=== PATIENT | male | born 1950 | race Caucasian/White ===

== ENCOUNTER 2022-08-07 06:09 | Day surgery (SDC) | payer OTHER, BC ==
[2022-08-02 11:58] VITALS: BMI 33.6
[2022-08-07] MEDS ORDERED: EPINEPHrine/PF 1 MG/1 ML (1:1,000) AMPULE ONE (07:11)
[2022-08-07] MEDS ORDERED: LIDOCAINE HCL 1%, 10 MG/ML (20ML VIAL) ONE (07:11)
[2022-08-07] MEDS ORDERED: ERYTHROMYCIN 0.5% OPHTHALMIC OINTMENT 3.5 GM TUBE ONE (07:11)
[2022-08-07] MEDS ORDERED: TETRACAINE 0.5% OPHTH SOLN 2 ML BOTTLE ONE (07:11)
[2022-08-07] MEDS ORDERED: POVIDONE-IODINE 5% OPHTHALMIC PREP 30 ML SOLUTION ONE (07:12)
[2022-08-07] MEDS ORDERED: ceFAZolin SODIUM 1 GM VIAL ONE ×2 (07:12→07:29)
[2022-08-07] MEDS ORDERED: BUPIVACAINE HCL/PF 0.5% (5MG/ML) 10 ML VIAL ONE (07:12)
[2022-08-07] MEDS ORDERED: MIDAZOLAM HCL 2 MG/2 ML SINGLE DOSE VIAL ONE (07:25)
[2022-08-07] MEDS ORDERED: PROPOFOL 20 ML ONE ×3 (07:28→09:16)
[2022-08-07] MEDS ORDERED: ONDANSETRON 4 MG/2 ML VIAL ONE (08:18)
[2022-08-07] MEDS ORDERED: DEXAMETHASONE SOD PHOSPHATE 4 MG/1 ML VIAL ONE (08:18)
[2022-08-07] MEDS ORDERED: ONDANSETRON 4 MG/2 ML VIAL IVPUSH PRN (09:53)
[2022-08-07] MEDS ORDERED: oxyCODONE HCL 5 MG TABLET PO PRN (09:53)
[2022-08-07] MEDS ORDERED: LACTATED RINGERS SOLUTION 1,000 ML IV SCH (10:00)
[2022-08-07 10:36] VITALS: RESP 16
[2022-08-07 10:47] VITALS: PULSE 62
[2022-08-07 11:39] VITALS: BP 131/70; TEMP 97.8
== END 2022-08-07 12:00 | disposition home or self-care (01) ==
LOC: FASU 06:09
PROVIDERS: ATTEND Ophthalmology
PROC: 0KX10ZZ Transfer Facial Muscle, Open Approach (ICD-10-PCS; 2022-08-07)
PROC: 0JQ10ZZ Repair Face Subcutaneous Tissue and Fascia, Open Approach (ICD-10-PCS; principal; 2022-08-07 08:00)
DX: H02.89 Other specified disorders of eyelid (principal); C44.1022 Unspecified malignant neoplasm of skin of right lower eyelid, including canthus
CPT/HCPCS: 94760

== ENCOUNTER 2022-10-09 06:16 | Day surgery (SDC) | payer OTHER, BC ==
[2022-10-04 16:29] VITALS: BMI 33.6
[2022-10-09] MEDS ORDERED: ceFAZolin SODIUM 1 GM VIAL ONE ×2 (07:19→07:27)
[2022-10-09] MEDS ORDERED: ERYTHROMYCIN 0.5% OPHTHALMIC OINTMENT 3.5 GM TUBE ONE (07:20)
[2022-10-09] MEDS ORDERED: POVIDONE-IODINE 5% OPHTHALMIC PREP 30 ML SOLUTION ONE (07:20)
[2022-10-09] MEDS ORDERED: TETRACAINE 0.5% OPHTH SOLN 2 ML BOTTLE ONE (07:20)
[2022-10-09] MEDS ORDERED: LIDOCAINE HCL 1%, 10 MG/ML (20ML VIAL) ONE (07:20)
[2022-10-09] MEDS ORDERED: EPINEPHrine/PF 1 MG/1 ML (1:1,000) AMPULE ONE (07:20)
[2022-10-09] MEDS ORDERED: BUPIVACAINE HCL 50 ML ONE (07:21)
[2022-10-09] MEDS ORDERED: LIDOCAINE HCL/PF 2% SDV 5ML VIAL ONE (07:27)
[2022-10-09] MEDS ORDERED: SUCCINYLCHOLINE CHLORIDE 200 MG/10 ML SYRINGE ONE (07:28)
[2022-10-09] MEDS ORDERED: MIDAZOLAM HCL 2 MG/2 ML SINGLE DOSE VIAL ONE (07:28)
[2022-10-09] MEDS ORDERED: PROPOFOL 40 ML ONE (07:28)
[2022-10-09] MEDS ORDERED: LIDOCAINE HCL 2% JELLY 11 ML TP ONE (07:49)
[2022-10-09] MEDS ORDERED: ONDANSETRON 4 MG/2 ML VIAL ONE (07:58)
[2022-10-09] MEDS ORDERED: PROPOFOL 20 ML ONE ×2 (08:40→09:10)
[2022-10-09] MEDS ORDERED: ONDANSETRON 4 MG/2 ML VIAL IVPUSH PRN (09:17)
[2022-10-09] MEDS ORDERED: oxyCODONE HCL 5 MG TABLET PO PRN ×2 (09:17)
[2022-10-09 10:01] VITALS: TEMP 98.1
[2022-10-09 11:06] VITALS: RESP 18
[2022-10-09 12:21] VITALS: BP 129/61; PULSE 69
== END 2022-10-09 12:10 | disposition home or self-care (01) ==
LOC: FASU 06:16
PROVIDERS: ATTEND Ophthalmology
PROC: 0KX10ZZ Transfer Facial Muscle, Open Approach (ICD-10-PCS; 2022-10-09)
PROC: 08R Eye, Replacement (ICD-10-PCS; principal; 2022-10-09 08:04)
DX: H02.112 Cicatricial ectropion of right lower eyelid (principal)
CPT/HCPCS: 94760